=== PATIENT | female | born 1970 | race Caucasian/White ===

== ENCOUNTER 2019-02-09 15:41 | Emergency (ER) | payer OTHER ==
--- NOTE | 2019-02-09 16:12 | RAD ---
XR Hand Rt 3 View STANDARD: 02/09/2019 3:58 PM CLINICAL INDICATION: Right hand pain COMPARISON: None. FINDINGS: Bones: No acute osseous abnormality. Joints: Joint spaces are preserved. Soft Tissue: Soft tissues are normal appearing. IMPRESSION: No acute osseous abnormality..
[2019-02-09] MEDS ORDERED: Ibuprofen 800 MG TAB ONE (16:23)
== END 2019-02-09 16:45 | disposition home or self-care (01) ==
LOC: NAV ERS 15:41
DX: S60.221A Contusion of right hand, initial encounter (principal); W22.8XXA Striking against or struck by other objects, initial encounter; Y93.01 Activity, walking, marching and hiking